=== PATIENT | male | born 1960 | race Caucasian/White ===

== ENCOUNTER 2017-02-10 17:26 | Emergency (ER) | payer OTHER ==
[~2017-02-10] VITALS: Ht 177.8 cm; Wt 81.6 kg
[~2017-02-10 17:26] MED LIST: AVINZA45 MG PO; BACLOFEN10 MG PO; DICLOFENAC SODI75 MG PO; FLEXERIL10 MG PO; IBUPROFEN400 MG PO; INDOCIN25 MG PO; METHADONE10 MG PO; MOBIC15 MG PO; NAPROSYN500 MG PO; NAPROXEN500 MG PO; OPANA ER15 MG PO; PERCOCET 10/1 TABLET PO; PREDNISONE10 MG PO; ROXICODONE15 MG PO; TORADOL10 MG PO; ULTRAM50 MG PO; VALIUM5 MG PO; VICODIN 5-3001 EACH PO
[2017-02-10 17:55] LABS: MCH 30.5 PG (29.0-34.0); MEAN PLAT.VOLUME 8.1 uM^3 (9.0-12.4); PLATELET COUNT 310 K/uL (156-360); RBC DIS.WIDTH-CV 12.4 % (11.8-14.6); RED BLOOD COUNT 4.78 M/uL (4.00-5.50); WHITE BLOOD COUNT 8.8 K/uL (4.1-10.2)
[2017-02-10 17:56] LABS: ADD MIUA? NO; BILIRUBIN NEGATIVE; BLOOD NEGATIVE; COLOR YELLOW ((YELLOW)); GLUCOSE (STRIP) NEGATIVE; KETONES NEGATIVE; LEUKOCYTES NEGATIVE; NITRITE NEGATIVE; PROTEIN (STRIP) NEGATIVE; SPECIFIC GRAVITY 1.016 (1.000-1.030); UCUL ADDED? NO
[2017-02-10 18:05] LABS: CHLORIDE 102 mEq/L (99-109); POTASSIUM 4.4 mEq/L (3.7-5.4)
[2017-02-10 18:06] LABS: SODIUM 136 mEq/L (136-147)
[2017-02-10 18:08] LABS: GLUCOSE 92 mg/dL (70-99)
[2017-02-10 18:09] LABS: ANION GAP 9 MEQ/L (2-14)
[2017-02-10 18:10] LABS: TOTAL BILIRUBIN 0.4 mg/dL (0.0-1.0)
[2017-02-10 18:11] LABS: ALKALINE PHOSPHATASE 63 IU/L (3-129); GFR ESTIMATE (CALCULATED) > 59 mL/min/
[2017-02-10 18:13] LABS: UREA NITROGEN (BUN) 16 mg/dL (9-23)
[2017-02-10 19:30] VITALS: BP 120/75
== END 2017-02-10 19:32 | disposition home or self-care (01) ==
LOC: EME 17:26
DX: M54.5 Low back pain (principal); R10.30 Lower abdominal pain, unspecified; R35.0 Frequency of micturition; R30.0 Dysuria; Z87.442 Personal history of urinary calculi; G89.29 Other chronic pain; Z79.891 Long term (current) use of opiate analgesic; Z87.891 Personal history of nicotine dependence
CPT/HCPCS: 80053; 81003; 85027; 99281; 99283